=== PATIENT | male | born 1980 | race Caucasian/White ===

== ENCOUNTER → 2016-06-21 | Outpatient (CLI) | payer BC ==
--- NOTE | 2016-06-21 16:11 | CT ---
EXAMINATION TYPE: CT abdomen pelvis w con DATE OF EXAM: 06/21/2016 4:03 PM COMPARISON: NONE INDICATION: PT states of possible ventral hernia, hx of hernia repairs x2. DLP: 1217 mGycm, Automated exposure control for dose reduction was used. CONTRAST: 100 mL of Omnipaque 300. Study performed with Oral Contrast TECHNIQUE: Axial images were obtained from above the diaphragm to the pubic rami in the axial plane a t 5 mm thick sections. Reconstructed images are reviewed on the computer in the coronal plane. FINDINGS: Limited CT sections are obtained the lung bases. The lung bases are clear. CT ABDOMEN: Liver: Normal Spleen: Normal Pancreas: Normal Adrenal glands: The adrenal glands are normal. Gallbladder: Normal Kidneys: No masses are evident. No hydronephrosis is present. There is a 1.1 cm cyst on the posteri or mid right kidney measuring 11 Hounsfield units. Delayed images were obtained through the kidneys, which remain unremarkable. Aorta: Vascular calcification is within the aorta. Inferior vena cava: Normal. CT PELVIS: Loops of bowel within the abdomen and pelvis are normal. There are loops of bowel which are incom pletely distended or lack oral contrast limiting their evaluation. Appendix: Not identified. Urinary bladder: Normal. Genitourinary structures: Prostate is normal. Osseous structures: No suspicious lytic or sclerotic lesions. IMPRESSIONS: 1. Simple cyst mid right kidney 2. No abdominal hernia
== END | disposition home or self-care (01) ==
LOC: RADCTMAIN 15:41
PROVIDERS: ATTEND Family Medicine
DX: N28.1 Cyst of kidney, acquired (principal)
CPT/HCPCS: 74177; Q9967

== ENCOUNTER 2018-08-01 11:04 | Emergency (ER) | payer BC ==
[2018-08-01 12:05] VITALS: RESP 18
[2018-08-01 13:48] LABS: Appearance,Urine Clear (Clear); Bilirubin,Urine Negative (Negative); Blood,Urine Negative (Negative); Color,Urine Yellow; Glucose,Urine (UA) Negative (Negative); Ketones,Urine Negative (Negative); Leukocyte Esterase,Urine Negative (Negative); Nitrite,Urine Negative (Negative); PH, Urine 7.5 (5.0-8.0); Protein,Urine Negative (Negative); Specific Gravity,Urine 1.022 (1.001-1.035); Urobilinogen,Urine <2.0 mg/dL (<2.0)
--- NOTE | 2018-08-01 14:07 | ED ---
Male Urogenital HPI - General Chief complaint: Urogenital Stated complaint: Groin pain Time Seen by Provider: 08/01/18 13:01 Source: patient, RN notes reviewed Mode of arrival: ambulatory Limitations: no limitations - History of Present Illness Initial comments: 38-year-old male presents emergency Department chief complaint left flank pain. Patient states she's had on-and-off symptoms since April states that he was skipping with his daughter a few days ago states he had onset of worsening pain proximal to 15 minutes after skipping. Patient states that with movement it is worse. Patient states she's noticed some bulging in that region. Patient states he has had bilateral hernias when he was an infant. Patient had surgery. Patient denies any difficulty urinating no dysuria denies any change in bowel habits from his normal. No melena hematochezia. No fevers or chills. - Related Data Home Medications Medication Instructions Recorded Confirmed Levothyroxine Sodium [Synthroid] 25 mcg PO DAILY 11/06/15 08/01/18 buPROPion HCL [Wellbutrin SR] 150 mg PO DAILY 11/06/15 08/01/18 Allergies Allergy/AdvReac Type Severity Reaction Status Date / Time No Known Allergies Allergy Verified 08/01/18 13:03 Review of Systems ROS Statement: Those systems with pertinent positive or pertinent negative responses have been documented in the HPI. ROS Other: All systems not noted in ROS Statement are negative. Past Medical History Past Medical History: Thyroid Disorder Additional Past Medical History / Comment(s): Bilateral pnuemothorax History of Any Multi-Drug Resistant Organisms: None Reported Past Surgical History: Hernia Repair, Joint Replacement Additional Past Surgical History / Comment(s): Repair to ankle Past Psychological History: No Psychological Hx Reported Smoking Status: Never smoker Past Alcohol Use History: None Reported Past Drug Use History: None Reported General Exam Limitations: no limitations General appearance: alert, in no apparent distress Head exam: Present: atraumatic, normocephalic, normal inspection Respiratory exam: Present: normal lung sounds bilaterally. Absent: respiratory distress, wheezes, rales, rhonchi, stridor Cardiovascular Exam: Present: regular rate, normal rhythm, normal heart sounds. Absent: systolic murmur, diastolic murmur, rubs, gallop, clicks GI/Abdominal exam: Present: soft, normal bowel sounds. Absent: distended, tenderness, guarding, rebound, rigid exam: Present: other (Left groin there is tenderness in the inguinal region) Course Vital Signs 08/01/18 12:01 Temperature 97.8 F Pulse Rate 53 L Respiratory 18 Rate Blood Pressure 116/74 O2 Sat by Pulse 98 Oximetry Medical Decision Making - Medical Decision Making 38-year-old male presented for left groin pain. There is no definite hernia on ultrasound though clinically I think he has left groin strain versus early small hernia. Patient follow-up with the same area, he'll continue ice, ibuprofen. - Lab Data Lab Results 08/01/18 Range/Units 13:29 Urine Color Yellow Urine Appearance Clear (Clear) Urine pH 7.5 (5.0-8.0) Ur Specific [place] 1.022 (1.001-1.035) Urine Protein Negative (Negative) Urine Glucose (UA) Negative (Negative) Urine Ketones Negative (Negative) Urine Blood Negative (Negative) Urine Nitrite Negative (Negative) Urine Bilirubin Negative (Negative) Urine Urobilinogen <2.0 (<2.0) mg/dL Ur Leukocyte Esterase Negative (Negative) Disposition Clinical Impression: Strain of left inguinal muscle Disposition: HOME SELF-CARE Condition: Stable Instructions (If sedation given, give patient instructions): Inguinal Hernia (ED) Additional Instructions: Please return to the Emergency Department if symptoms worsen or any other concerns. Is patient prescribed a controlled substance at d/c from ED?: No Referrals: Jim Gardiner DO [Primary Care Provider] - 1-2 days Scott Jean-Baptiste MD [STAFF PHYSICIAN] - 1-2 days Time of Disposition: 14:39
--- NOTE | 2018-08-01 14:28 | US ---
EXAMINATION TYPE: US groin LT DATE OF EXAM: 08/01/2018 COMPARISON: CT 06/21/2016 CLINICAL HISTORY: Pain. Left groin scanned, no evident fluid collection, no mass, no evident hernia. Limited scanning performed in left groin. IMPRESSION: No significant abnormalities evident
[2018-08-01 15:03] VITALS: BP 109/63; PULSE 56; TEMP 98.7
== END 2018-08-01 15:03 | disposition home or self-care (01) ==
LOC: EC 11:04
DX: S39.013A Strain of muscle, fascia and tendon of pelvis, initial encounter (principal); E07.9 Disorder of thyroid, unspecified; Z79.890 Hormone replacement therapy; Z79.899 Other long term (current) drug therapy; X58.XXXA Exposure to other specified factors, initial encounter
CPT/HCPCS: 81003; 99284

== ENCOUNTER → 2019-04-17 | Day surgery (SDC) | payer BC ==
[2019-04-13 15:42] VITALS: BMI 25.1
[~2019-04-17] MED LIST: BUPIVACAINE (PF) 0.25% 30 ML VIAL SQ ONE; DEXAMETHASONE SOD PHOSPHATE 10 MG/ML 1 ML VIAL IV ONE; DEXAMETHASONE SOD PHOSPHATE 4 MG/ML 1 ML VIAL ONE; GLYCOPYRROLATE 0.2 MG/ML 2 ML VIAL ONE; HEPARIN SODIUM,PORCINE 5,000 UNIT/ML 1 ML VIAL SQ ONE; HYDROcodone/APAP 5-325MG 1 EACH TAB PO ONE; HYDROmorphone 0.5 MG/0.5 ML SYRINGE IVP PRN; KETAMINE 10 MG/ML 20 ML VIAL ONE; LIDOCAINE 1% 20 ML VIAL (10MG/ML) FOR IV START INTRADERMA PRN; LIDOCAINE 1% INJ 10MG/ML (20 ML MDV) ONE; MIDAZOLAM 2 MG/2 ML VIAL IV ONE; NEOSTIGMINE 1 MG/ML 10 ML VIAL ONE; ONDANSETRON 4 MG/2 ML VIAL IVP ONE; PROPOFOL 10 MG/ML 20 ML VIAL IV ONE; ROCURONIUM BROMIDE 10 MG/ML 5 ML VIAL IV ONE; ROPIVACAINE 5 MG/ML 30 ML VIAL ONE; SCOPOLAMINE 1.5MG/72HR PATCH TRANSDERM ONE; fentaNYL (PF) 50 MCG/ML 2 ML AMP IV ONE
[2019-04-17] MEDS: LACTATED RINGERS 1,000 ML IV SCH (08:08)
--- NOTE | 2019-04-17 09:01 | P.GSHP ---
History of Present Illness H&P Date: 04/17/19 Chief Complaint: Left inguinal hernia This a 38-year-old male who presents today for laparoscopic robotic of left inguinal hernia. Patient underwent tender mass of left groin. Past Medical History Past Medical History: Thyroid Disorder Additional Past Medical History / Comment(s): PAST HX Bilateral pnuemothorax 1999 History of Any Multi-Drug Resistant Organisms: None Reported Past Surgical History: Hernia Repair, Orthopedic Surgery Additional Past Surgical History / Comment(s): Repair to RT ankle. HERNIA X 2. COLONOSCOPY Past Anesthesia/Blood Transfusion Reactions: No Reported Reaction Smoking Status: Never smoker - Past Family History Mother Family Medical History: No Reported History Medications and Allergies Home Medications Medication Instructions Recorded Confirmed Type Levothyroxine Sodium [Synthroid] 25 mcg PO DAILY 11/06/15 04/17/19 History buPROPion HCL [Wellbutrin SR] 150 mg PO DAILY 11/06/15 04/17/19 History Allergies Allergy/AdvReac Type Severity Reaction Status Date / Time No Known Allergies Allergy Verified 04/17/19 08:01 Surgical - Exam Vital Signs Temp Pulse Resp BP Pulse Ox 97.4 F L 51 L 16 110/58 97 04/17/19 07:59 04/17/19 07:59 04/17/19 07:59 04/17/19 07:59 04/17/19 07:59 - General well developed, well nourished, no distress - Eyes PERRL - ENT normal pinna - Neck no masses - Respiratory normal expansion - Cardiovascular Rhythm: regular - Abdomen Abdomen: soft, non tender Assessment and Plan Assessment: Left inguinal hernia. We'll perform laparoscopic robotic-assisted repair.
--- NOTE | 2019-04-17 10:49 | P.ANPRN ---
Procedure Note - Anesthesia - Nerve Block Performed Bilateral Transversus Abdominis Single Time Out Performed: Yes Date of Procedure: 04/17/19 Procedure Start Time: 08:48 Procedure Stop Time: 08:58 Location of Patient: PreOp Indication: Acute Post-Operative Pain, Requested by Surgeon Sedation Type: Sedate with meaningful contact maintained Preparation: Sterile Prep Position: Supine Catheter: None Needle Types: Pajunk Needle Gauge: 21 Ultrasound used to visualize needle placement: Yes Ultrasound used to observe medication spread: Yes Injectate: 0.5% Ropivacaine (see comment for volume) (ROPIVACAINE 0.5% 20 CC + DECADRON 4MG-- PER SIDE) Blood Aspirated: No Pain Paresthesia on Injection Noted: No Resistance on Injection: Normal Image Stored and Saved: Yes Events: Uneventful and Well Tolerated
--- NOTE | 2019-04-17 10:55 | P.OP ---
Date of Procedure: 04/17/19 Preoperative Diagnosis: Left inguinal hernia Postoperative Diagnosis: Bilateral inguinal hernia Procedure(s) Performed: Laparoscopic repair of bilateral inguinal hernia Anesthesia: SHAHZAD Surgeon: Scott Jean-Baptiste Estimated Blood Loss (ml): 5 Pathology: none sent Condition: stable Disposition: PACU Description of Procedure: The patient's placed on the operating table in the supine position. The patient received general anesthesia. The patient's abdomen was prepped and draped in usual sterile fashion. The skin was anesthetized 1% local Xylocaine at the incision sites. Using an 11 blade a skin incision was made at the umbilicus. The fascia was grasped with a Maisha and then the peritoneal cavity was entered with the Veress needle. Position of the Veress needle was confirmed with a positive drop test. After adequate insufflation a 5 mm trocar was placed into the peritoneal cavity. The Laparoscope was placed the peritoneal cavity. And a robotic 8 mm trocar was placed in the right lateral position and then another 8 mm robotic trochars placed in the left lateral position. The original 5 mm trocar was exchanged for a 12 mm trocar. The patient was placed in reverse Trendelenburg and then the patient was docked to the robot. Next the peritoneum over top of the right inguinal hernia was incised and then using blunt and sharp dissection and electrocautery the hernia sac was dissected free from the floor of the inguinal canal. The hernia sac was completely reduced into the peritoneal cavity. And then using the [employer] mesh the hernia was repaired. The peritoneum was then sutured with 20V lock suture. Next the peritoneum over top of the left inguinal hernia was incised and then using blunt and sharp dissection and electrocautery the hernia sac was dissected free from the floor of the inguinal canal. The hernia sac was completely reduced into the peritoneal cavity. And then using the [employer] mesh the hernia was repaired. The peritoneum was then sutured with 20V lock suture. The patient was then undocked the robot. The needle was withdrawn from the peritoneal cavity. The umbilical trocar site was closed with 0 Ethibond suture. The skin was closed interrupted 3-0 Monocryl suture. Dermabond dressing was applied. Patient was sent to recovery in stable condition.
[2019-04-17 12:22] VITALS: RESP 16
[2019-04-17 13:29] VITALS: BP 114/77; PULSE 66; TEMP 97.9
== END ==
LOC: OR 07:35
PROVIDERS: ATTEND Surgery
DX: K40.20 Bilateral inguinal hernia, without obstruction or gangrene, not specified as recurrent (principal); E07.9 Disorder of thyroid, unspecified; Z87.09 Personal history of other diseases of the respiratory system; Z79.890 Hormone replacement therapy; Z79.899 Other long term (current) drug therapy
CPT/HCPCS: 64488; 49650; C1781; J2250; J1644; J1100 ×2; J2710; J0690; J2405; J2001; J3010; J2795; J2704

== ENCOUNTER → 2019-08-02 | Outpatient (CLI) | payer BC ==
--- NOTE | 2019-08-02 15:47 | NM ---
EXAMINATION TYPE: NM hepatobiliary w CCK DATE OF EXAM: 08/02/2019 COMPARISON: NONE HISTORY: Biliary dyskinesia TECHNIQUE: After the intravenous administration of 4.7 mCi Tc 99m Mebrofenin hepatobiliary scintigrap hy is performed. Immediate images post injection. FINDINGS: There is satisfactory initial accumulation of tracer by the liver. The gallbladder is visualized wit hin 8 minutes. The small bowel activity is noted within 28 minutes. At one hour CCK was administere d, patient was injected with 1.6 mcg of Kinevac, and gallbladder ejection fraction is calculated at 9 4 %, elevated. Therefore there is no scintigraphic evidence of cystic or common bile duct obstructio n to suggest acute cholecystitis or gallbladder dyskinesia. IMPRESSION: Biliary hyperkinesia with abnormally elevated biliary ejection fraction of 94%. No scinti graphic evidence of acute or chronic cholecystitis.
== END | disposition home or self-care (01) ==
LOC: RADNMMAIN 12:44
PROVIDERS: ATTEND Surgery
DX: K82.8 Other specified diseases of gallbladder (principal)
CPT/HCPCS: 78227; A9537; J2805

== ENCOUNTER → 2019-08-08 | Outpatient (CLI) | payer BC | END | disposition home or self-care (01) | LOC: LABWHC1 08:22 | PROVIDERS: ATTEND Surgery | DX: Z11.59 Encounter for screening for other viral diseases (principal) ==

== ENCOUNTER 2019-08-10 10:34 | Day surgery (SDC) | payer BC ==
[2019-08-08 14:21] VITALS: BMI 24.4
[~2019-08-10 10:34] MED LIST changes: -BUPIVACAINE (PF) 0.25% 30 ML VIAL SQ ONE; -DEXAMETHASONE SOD PHOSPHATE 10 MG/ML 1 ML VIAL IV ONE; -DEXAMETHASONE SOD PHOSPHATE 4 MG/ML 1 ML VIAL ONE; -GLYCOPYRROLATE 0.2 MG/ML 2 ML VIAL ONE; -HEPARIN SODIUM,PORCINE 5,000 UNIT/ML 1 ML VIAL SQ ONE; -HYDROcodone/APAP 5-325MG 1 EACH TAB PO ONE; -HYDROmorphone 0.5 MG/0.5 ML SYRINGE IVP PRN; -KETAMINE 10 MG/ML 20 ML VIAL ONE; +LACTATED RINGERS 1,000 ML IV SCH; -LIDOCAINE 1% 20 ML VIAL (10MG/ML) FOR IV START INTRADERMA PRN; -LIDOCAINE 1% INJ 10MG/ML (20 ML MDV) ONE; -MIDAZOLAM 2 MG/2 ML VIAL IV ONE; -NEOSTIGMINE 1 MG/ML 10 ML VIAL ONE; -ONDANSETRON 4 MG/2 ML VIAL IVP ONE; -PROPOFOL 10 MG/ML 20 ML VIAL IV ONE; -ROCURONIUM BROMIDE 10 MG/ML 5 ML VIAL IV ONE; -ROPIVACAINE 5 MG/ML 30 ML VIAL ONE; -SCOPOLAMINE 1.5MG/72HR PATCH TRANSDERM ONE; -fentaNYL (PF) 50 MCG/ML 2 ML AMP IV ONE
[2019-08-10] MEDS ORDERED: LIDOCAINE 1% (10MG/ML) FOR IV START INTRADERMA ONE (11:06)
[2019-08-10 11:08] VITALS: RESP 16; TEMP 97.6
[2019-08-10] MEDS ORDERED: PROPOFOL 10 MG/ML 20 ML VIAL IV ONE (11:44)
--- NOTE | 2019-08-10 11:53 | P.GSHP ---
History of Present Illness H&P Date: 08/10/19 Chief Complaint: GERD Is a 39-year-old male presents today for EGD. Patient complaints of GERD. Past Medical History Past Medical History: Thyroid Disorder Additional Past Medical History / Comment(s): PAST HX Bilateral pnuemothorax 1999. DIGESTIVE ISSUES History of Any Multi-Drug Resistant Organisms: None Reported Past Surgical History: Hernia Repair, Orthopedic Surgery Additional Past Surgical History / Comment(s): Repair to RT ankle. HERNIA X 2. COLONOSCOPY Past Anesthesia/Blood Transfusion Reactions: No Reported Reaction Smoking Status: Never smoker - Past Family History Mother Family Medical History: No Reported History Medications and Allergies Home Medications Medication Instructions Recorded Confirmed Type Levothyroxine Sodium [Synthroid] 25 mcg PO DAILY 11/06/15 08/10/19 History buPROPion HCL [Wellbutrin SR] 150 mg PO DAILY 11/06/15 08/10/19 History Allergies Allergy/AdvReac Type Severity Reaction Status Date / Time No Known Allergies Allergy Verified 08/10/19 11:00 Surgical - Exam Vital Signs Temp Pulse Resp BP Pulse Ox 97.6 F 60 16 114/67 98 08/10/19 11:07 08/10/19 11:07 08/10/19 11:07 08/10/19 11:07 08/10/19 11:07 - General well developed, well nourished, no distress - Eyes PERRL - ENT normal pinna - Neck no masses - Respiratory normal expansion - Abdomen Abdomen: soft, non tender Assessment and Plan Assessment: GERD. We'll perform EGD.
--- NOTE | 2019-08-10 11:58 | P.OP ---
Date of Procedure: 08/10/19 Preoperative Diagnosis: GERD Postoperative Diagnosis: Antral gastritis No evidence of hiatal hernia Procedure(s) Performed: EGD Anesthesia: MAC Surgeon: Scott Jean-Baptiste Pathology: other (Antrum) Condition: stable Disposition: PACU Description of Procedure: Patient's placed on the endoscopy table in the lateral position. He received IV sedation. The gastroscope placed oropharynx passed in the esophagus and stomach. Scope then placed through the pylorus. The first and second portion of the duodenum appeared normal. Scope was then brought back the antrum this. Mildly inflamed. A biopsies performed. The scope was unretroflexed and remainder of the stomach appeared normal. There is no significant hiatal hernia. The GE junction was at 47 is. The distal esophagus appeared normal. The proximal esophagus appeared normal. Scope was withdrawn for patient.
[2019-08-10 12:45] VITALS: BP 103/64; PULSE 59
== END 2019-08-10 12:55 | disposition home or self-care (01) ==
LOC: ORWHC2ENDO 10:34
PROVIDERS: ATTEND Surgery
DX: K29.50 Unspecified chronic gastritis without bleeding (principal); K21.9 Gastro-esophageal reflux disease without esophagitis; E07.9 Disorder of thyroid, unspecified; Z87.09 Personal history of other diseases of the respiratory system; Z98.890 Other specified postprocedural states; Z79.890 Hormone replacement therapy; Z79.899 Other long term (current) drug therapy; F41.9 Anxiety disorder, unspecified
CPT/HCPCS: 88305; 43239; J2704

== ENCOUNTER 2019-08-20 09:17 | Day surgery (SDC) | payer BC ==
[2019-08-17 13:05] VITALS: BMI 24.4
[~2019-08-20 09:17] MED LIST changes: +ACETAMINOPHEN TAB 500 MG TAB PO ONE; +DEXAMETHASONE SOD PHOSPHATE 10 MG/ML 1 ML VIAL IV ONE; +HEPARIN SODIUM,PORCINE 5,000 UNIT/ML 1 ML VIAL SQ ONE; +HYDROmorphone 0.5 MG/0.5 ML SYRINGE IVP PRN; +LIDOCAINE 1% (10MG/ML) FOR IV START INTRADERMA PRN; +ONDANSETRON 4 MG/2 ML VIAL IVP ONE
--- NOTE | 2019-08-20 10:47 | P.GSHP ---
History of Present Illness H&P Date: 08/20/19 Chief Complaint: Right upper quadrant pain Is a 39-year-old male who presents today for laparoscopically 6. Patient is right quadrant pain. His recent HIDA scan shows a hyperkinetic gallbladder with a 94% ejection fraction. Patient presents for laparoscopic cholecystectomy. Past Medical History Past Medical History: Thyroid Disorder Additional Past Medical History / Comment(s): PAST HX Bilateral pnuemothorax 1999 History of Any Multi-Drug Resistant Organisms: None Reported Past Surgical History: Hernia Repair, Orthopedic Surgery Additional Past Surgical History / Comment(s): Repair to RT ankle EGD. HERNIA X 2. COLONOSCOPY Past Anesthesia/Blood Transfusion Reactions: No Reported Reaction Smoking Status: Never smoker - Past Family History Mother Family Medical History: No Reported History Medications and Allergies Home Medications Medication Instructions Recorded Confirmed Type Levothyroxine Sodium [Synthroid] 25 mcg PO DAILY 11/06/15 08/17/19 History buPROPion HCL [Wellbutrin SR] 150 mg PO DAILY 11/06/15 08/17/19 History Allergies Allergy/AdvReac Type Severity Reaction Status Date / Time No Known Allergies Allergy Verified 08/20/19 09:54 Surgical - Exam Vital Signs Temp Pulse Resp BP 97.7 F 58 L 18 107/56 08/20/19 09:49 08/20/19 09:49 08/20/19 09:49 08/20/19 09:49 - General well developed, well nourished, no distress - Eyes PERRL - ENT normal pinna - Neck no masses - Respiratory normal expansion - Cardiovascular Rhythm: regular - Abdomen Abdomen: soft, non tender Assessment and Plan Assessment: Chronic cholecystitis. We'll perform laparoscopic cholecystectomy.
[2019-08-20] MEDS ORDERED: MIDAZOLAM 2 MG/2 ML VIAL ONE (11:01)
[2019-08-20] MEDS ORDERED: SUCCINYLCHOLINE CHLORIDE 100 MG/5 ML SYR IV ONE (11:01)
[2019-08-20] MEDS ORDERED: fentaNYL (PF) 50 MCG/ML 2 ML AMP ONE (11:01)
[2019-08-20] MEDS ORDERED: NEOSTIGMINE 1 MG/ML 10 ML VIAL ONE (11:01)
[2019-08-20] MEDS ORDERED: KETOROLAC 30 MG/ML 1 ML VIAL ONE (11:01)
[2019-08-20] MEDS ORDERED: GLYCOPYRROLATE 0.2 MG/ML 2 ML VIAL ONE (11:01)
[2019-08-20] MEDS ORDERED: LIDOCAINE 1% INJ 10MG/ML (20 ML MDV) ONE (11:01)
[2019-08-20] MEDS ORDERED: PROPOFOL 10 MG/ML 20 ML VIAL IV ONE (11:01)
[2019-08-20] MEDS ORDERED: BUPIVACAIN-EPI 0.25%-1:200,000 30 ML VIAL SQ ONE (11:23)
--- NOTE | 2019-08-20 11:42 | P.OP ---
Date of Procedure: 08/20/19 Preoperative Diagnosis: Cholecystitis Postoperative Diagnosis: Cholecystitis Procedure(s) Performed: Laparoscopic cholecystectomy Anesthesia: SHAHZAD Surgeon: Scott Jean-Baptiste Estimated Blood Loss (ml): 5 Pathology: other (Gallbladder) Condition: stable Disposition: PACU Description of Procedure: The patient was placed on the operating table. The patient received a general endotracheal tube anesthesia. The patients abdomen was prepped and draped in the usual sterile fashion. Through an infraumbilical stab incision, the fascia of the anterior abdominal wall was grasped with a pair of Kochers and then the Veress needle was placed in the peritoneal cavity. Position of the Veress needle was confirmed with positive drop test. The abdomen was then insufflated. After adequate insufflation, the 10 mm trocar was placed in the peritoneal cavity. Following this the laparoscope was placed in the peritoneal cavity. The patient was placed in the head-up, right side up position and then a 5 mm trocar was placed in the right lateral and right subcostal position under direct visualization. A 8 mm trocar was placed in the epigastric position. The gallbladder was grasped in the fundus and infundibulum. Traction on the gallbladder was placed in the lateral and the cephalad positions. The triangle of Calot was visualized.. The cystic duct was bluntly dissected until the union of the cystic duct and common bile duct was seen. A critical view of safety was achieved. The cystic duct was then divided and sealed with the Harmonic scissors. A PDS Endoloop was then placed throughout the cystic duct stump. The cystic artery divided and sealed with the Harmonic scissors. The gallbladder was then removed from the liver bed using Harmonic scissors. The gallbladder was then extracted through the epigastric port site. Operative field was checked for any bleeding spots and Harmonic scissors was used to coagulate the liver bed. The abdomen was irrigated. The trocars were removed. The skin was closed using interrupted 3-0 Vicryl suture. Dermabond dressing were applied. The patient tolerated the procedure well.
[2019-08-20 11:50] VITALS: TEMP 97
[2019-08-20 12:38] VITALS: RESP 16
[2019-08-20 12:52] VITALS: BP 106/65; PULSE 51
== END 2019-08-20 13:30 | disposition home or self-care (01) ==
LOC: OR 09:17
PROVIDERS: ATTEND Surgery
DX: K81.1 Chronic cholecystitis (principal); E07.9 Disorder of thyroid, unspecified; Z79.890 Hormone replacement therapy; Z79.899 Other long term (current) drug therapy; Z98.890 Other specified postprocedural states
CPT/HCPCS: 47562; J2250; J1100; J2710; J0690; J2405; J2001; J3010; J1885; J0330; J2704; 88304

== ENCOUNTER → 2022-07-09 | Outpatient (CLI) | payer BC ==
[2022-07-09 15:07] LABS: Basophils # (A) 0.04 X 10*3/uL (0.00-0.10); Basophils % (A) 0.8 %; Eosinophils # (A) 0.04 X 10*3/uL (0.04-0.35); Eosinophils % (A) 0.8 %; HCT 45.1 % (39.6-50.0); HGB 14.3 g/dL (13.0-17.0); Immature Grans, Automated 1.6 %; Lymphocytes % (A) 23.3 %; MCH 28.7 pg (27.0-32.0); MCHC 31.7 g/dL (32.0-37.0); MCV 90.4 fL (80.0-97.0); Mean Platelet Volume 11.6 fL (9.5-12.2); Monocytes # (A) 0.42 X 10*3/uL (0.20-1.00); Monocytes % (A) 8.2 %; NRBC Per 100 WBC 0 /100 WBCS (0.0-0.0); Neutrophils # (A) 3.36 X 10*3/uL (1.80-7.70); Neutrophils % (A) 65.3 %; Platelet Count 207 X 10*3/uL (140-440); RBC 4.99 X 10*6/uL (4.40-5.60); WBC 5.14 X 10*3/uL (4.50-10.00)
== END | disposition home or self-care (01) ==
LOC: LABPAT 10:34
PROVIDERS: ATTEND Surgery
DX: Z01.812 Encounter for preprocedural laboratory examination (principal)
CPT/HCPCS: 36415; 85025

== ENCOUNTER 2022-07-14 07:48 | Day surgery (SDC) | payer BC ==
[2022-07-12 11:53] VITALS: BMI 24.4
[~2022-07-14 07:48] MED LIST changes: -ACETAMINOPHEN TAB 500 MG TAB PO ONE; +ACETAMINOPHEN TAB 500 MG TAB PO PRN; -DEXAMETHASONE SOD PHOSPHATE 10 MG/ML 1 ML VIAL IV ONE; +DEXAMETHASONE SOD PHOSPHATE 4 MG/ML 1 ML VIAL IV ONE; -HEPARIN SODIUM,PORCINE 5,000 UNIT/ML 1 ML VIAL SQ ONE; +HEPARIN SODIUM,PORCINE/PF 5,000 UNIT/0.5 ML SYRINGE SQ PRN; -LIDOCAINE 1% (10MG/ML) FOR IV START INTRADERMA PRN; +MIDAZOLAM 2 MG/2 ML VIAL IV PRN
[2022-07-14 08:24] VITALS: RESP 16; TEMP 97.3
[2022-07-14] MEDS ORDERED: LIDOCAINE 1% (10MG/ML) FOR IV START INTRADERMA ONE (08:30)
[2022-07-14 08:33] LABS: Glucose,Whole Blood 96 mg/dL (70-110)
--- NOTE | 2022-07-14 09:14 | P.GSHP ---
History of Present Illness H&P Date: 07/14/22 Chief Complaint: Umbilical hernia 's referral male who's developed an umbilical hernia. Patient presents today for laparoscopic robotic-assisted repair. Past Medical History Past Medical History: Thyroid Disorder Additional Past Medical History / Comment(s): PAST HX Bilateral pnuemothorax 1999 History of Any Multi-Drug Resistant Organisms: None Reported Past Surgical History: Cholecystectomy, Hernia Repair, Orthopedic Surgery Additional Past Surgical History / Comment(s): Repair to RT ankle. HERNIA X 2. COLONOSCOPY/EGD Past Anesthesia/Blood Transfusion Reactions: No Reported Reaction Smoking Status: Never smoker - Past Family History Mother Family Medical History: No Reported History Medications and Allergies Home Medications Medication Instructions Recorded Confirmed Type Levothyroxine Sodium [Synthroid] 25 mcg PO DAILY 11/06/15 07/12/22 History Allergies Allergy/AdvReac Type Severity Reaction Status Date / Time No Known Allergies Allergy Verified 07/14/22 08:15 Surgical - Exam Vital Signs Temp Pulse Resp BP Pulse Ox 97.3 F L 52 L 16 103/55 97 07/14/22 08:21 07/14/22 08:21 07/14/22 08:21 07/14/22 08:21 07/14/22 08:21 - General well developed, well nourished, no distress - Eyes PERRL - ENT normal pinna - Neck no masses - Respiratory normal expansion - Cardiovascular Rhythm: regular - Abdomen Abdomen: soft, non tender Assessment and Plan Assessment: Umbilical hernia. We'll perform laparoscopic robotic-assisted repair.
[2022-07-14] MEDS ORDERED: fentaNYL (PF) 50 MCG/ML 2 ML AMP ONE (09:19)
[2022-07-14] MEDS ORDERED: SUCCINYLCHOLINE CHLORIDE 200 MG/10 ML VIAL IV ONE (09:19)
[2022-07-14] MEDS ORDERED: MIDAZOLAM 2 MG/2 ML VIAL ONE (09:19)
[2022-07-14] MEDS ORDERED: NEOSTIGMINE 1 MG/ML 10 ML VIAL ONE (09:19)
[2022-07-14] MEDS ORDERED: PROPOFOL 10 MG/ML 20 ML VIAL IV ONE (09:19)
[2022-07-14] MEDS ORDERED: LIDOCAINE 4% LTA KIT (4 ML) TOPICAL ONE (09:19)
[2022-07-14] MEDS ORDERED: KETAMINE 10 MG/ML 20 ML VIAL ONE (09:19)
[2022-07-14] MEDS ORDERED: KETOROLAC 15 MG/ML 1 ML VIAL ONE (09:19)
[2022-07-14] MEDS ORDERED: ROCURONIUM 10 MG/ML (5 ML VIAL) IV ONE (09:19)
[2022-07-14] MEDS ORDERED: GLYCOPYRROLATE 0.2 MG/ML 2 ML VIAL ONE (09:19)
[2022-07-14] MEDS ORDERED: LIDOCAINE 2% INJ 20 MG/ML (2 ML VIAL) ONE (09:19)
[2022-07-14] MEDS ORDERED: HYDROmorphone (PF) 1 MG/ML ONE (09:19)
[2022-07-14] MEDS ORDERED: BUPIVACAINE (PF) 0.25% 30 ML VIAL SQ ONE (09:42)
[2022-07-14] MEDS ORDERED: LACTATED RINGERS 1,000 ML IV ONE (10:02)
--- NOTE | 2022-07-14 10:35 | P.OP ---
Date of Procedure: 07/14/22 Preoperative Diagnosis: Umbilical hernia Postoperative Diagnosis: Incarcerated umbilical hernia Procedure(s) Performed: Laparoscopic robotic-assisted repair of umbilical hernia Partial omentectomy Transversus abdominis plane block Anesthesia: SHAHZAD Surgeon: Scott Jean-Baptiste Estimated Blood Loss (ml): 5 Pathology: other (Incarcerated omentum) Condition: stable Disposition: PACU Description of Procedure: The patient was placed on the operating table in the supine position. He received general anesthesia. His abdomen was prepped and draped usual fashion. Using a 5 mm optical trocar under direct visualization the peritoneal cavity was entered in the left upper quadrant. The abdomen was then insufflated. The laparoscope was placed back into the perineal cavity. Next a 8 mm robotic trocar was placed in the left lower quadrant and a 12 mm robotic trocar was placed in the left lateral position. The original 5 mm trocar was exchanged for a 8 mm robotic trocar. A four-quadrant transversus abdominis plane block was performed with 1% local Xylocaine. The patient's placed in the left side up position. The patient was docked to the robot. The umbilical hernia was visualized. Using hook cautery the peritoneum over the umbilical hernia was excised. The incarcerated omentum was dissected free sent to pathology. The fascial opening was repaired using 0V LOC suture. Next a piece of 11 cm round ventral light ST mesh was placed into the. Cavity and secured with 2 OV lock suture. The patient was undocked the robot. The needles were retrieved. The fascia of the 12 mm trocar site was closed with 0 Ethibond suture. Skin was closed interrupted 3-0 Monocryl suture. Dermabond dressings was applied. Patient top procedure well and was sent to recovery room stable condition.
[2022-07-14 12:06] VITALS: BP 103/63; PULSE 46
== END 2022-07-14 13:20 | disposition home or self-care (01) ==
LOC: OR 07:48
PROVIDERS: ATTEND Surgery
DX: K42.0 Umbilical hernia with obstruction, without gangrene (principal); K66.0 Peritoneal adhesions (postprocedural) (postinfection); E07.9 Disorder of thyroid, unspecified; Z98.890 Other specified postprocedural states; Z90.49 Acquired absence of other specified parts of digestive tract; Z79.890 Hormone replacement therapy
CPT/HCPCS: 49592; S2900; 86850; 86900; 86901; 88305

== ENCOUNTER → 2023-09-13 | Outpatient (CLI) | payer BC ==
--- NOTE | 2023-09-13 12:09 | XR ---
EXAMINATION TYPE: XR lumbar spine 2 or 3V DATE OF EXAM: 09/13/2023 10:16 AM CLINICAL INDICATION:Male, 43 years old with history of R52 PAIN; [facility] COMPARISON: None TECHNIQUE: XR lumbar spine 2 or 3V - Frontal, lateral and coned in L5-S1 lateral views of the spine. FINDINGS: No evidence of any acute osseous pathology. No evidence of loss of vertebral body height i s seen. There is normal alignment of the lumbar vertebral bodies. Scattered disc space narrowing. Mul tilevel marginal osteophyte formation throughout the visualized spine. There is facet joint arthropat hy throughout the spine. Scattered at least mild neural foraminal stenosis. IMPRESSION: 1. No acute fracture. 2. Mild multilevel disc degeneration.
== END | disposition home or self-care (01) ==
LOC: RADXRMAIN 10:00
PROVIDERS: ATTEND Family Medicine
DX: M51.36 Other intervertebral disc degeneration, lumbar region (principal)
CPT/HCPCS: 72100